=== PATIENT | female | born 1990 | race African-American/Black ===

== ENCOUNTER 2018-04-26 00:32 | Day surgery (SDC) | payer OTHER ==
[2018-04-26 00:53] VITALS: BP 115/75; TEMP 98.6; BMI 33.2
[2018-04-26] MEDS ORDERED: Ondansetron ODT 4 MG TAB PO PRN (01:21)
[2018-04-26 01:41] LABS: #Eosinphils 0.1 thou/uL (0.0-0.7); #Lymphocytes 1.1 thou/uL (1.20-3.40); #Monocytes 0.2 thou/uL (0.11-0.59); #Neutrophils 4.5 thou/uL (1.40-6.50); %Basophils 0.1 % (0.0-1.0); %Eosinophils 1.1 % (0.0-10.0); %Lymphocytes 19.3 % (21.0-51.0); %Monocytes 2.8 % (0.0-10.0); %Neutrophils 76.8 % (42.0-75.0); Hemoglobin 11.9 g/dL (12.0-16.0); Mean Corpuscular HGB CONC 31.9 g/dL (32.0-36.0); Mean Corpuscular Hemoglobin 26.1 pg (27.0-31.0); Mean Corpuscular Volume 81.8 fL (78.0-98.0); Mean Platelet Volume 9.2 fL (7.4-10.4); Platelet Count 190 thou/uL (130-400); RBC Distribution Width 12.9 % (11.5-14.5); Red Blood Cell (RBC) Count 4.54 mill/uL (4.20-5.40); White Blood Cell (WBC) Count 5.9 thou/uL (4.8-10.8)
[2018-04-26 02:03] LABS: ALT (SGPT) 12 U/L (8-55); AST (SGOT) 17 U/L (5-34); Albumin 3.3 g/dL (3.5-5.0); Alkaline Phosphatase 158 U/L (40-150); Anion Gap 15 mmol/L (10-20); BUN (Urea Nitrogen) 5 mg/dL (7.0-18.7); Bilirubin, Total 0.7 mg/dL (0.2-1.2); Calc. Creatinine Clearance 152 mL/min (70-130); Calcium 8.8 mg/dL (7.8-10.44); Carbon Dioxide 22 mmol/L (22-29); Chloride 106 mmol/L (98-107); Estimated GFR-MDRD Greater than 90; Globulin 2.8 g/dL (2.4-3.5); Glucose 74 mg/dL (70-105); Potassium 3.7 mmol/L (3.5-5.1); Protein, Total 6.1 g/dL (6.0-8.3); Sodium 139 mmol/L (136-145)
[2018-04-26 02:12] LABS: Bilirubin Small (Negative); Blood, Urine Negative (Negative); Clarity CLOUDY (Clear); Glucose, Urine (Dipstick) Negative (Negative); Leukocyte Small (Negative); Nitrite Negative (Negative); Protein, Urine (Dipstick) Trace mg/dL (Neg-Trace); Specific Gravity, Urine 1.022 (1.002-1.036)
[2018-04-26 02:13] LABS: Bacteria/HPF 1+ HPF (None Seen); Hyaline Casts/LPF 7-10 HYALINE CAST LPF (0-3 Hyaline); Pathc Cast-AUWi Flag 1.76 (0-2.49)
[2018-04-26 02:24] LABS: Transitional Epithelial 0-3 HPF (0-3)
[2018-04-26] MEDS ORDERED: Lactated Ringer's 1,000 ML IV SCH ×2 (02:30)
--- NOTE | 2018-04-26 06:00 | SS ---
DATE OF ADMISSION: 04/26/2018 DATE OF DISCHARGE: 04/26/2018 REGULAR PHYSICIAN: Kamran Villegas MD. EVALUATING PHYSICIAN: Huy Durand MD CHIEF COMPLAINT: Vomiting x3 at home. HISTORY OF PRESENT ILLNESS: Ms. Caceres is a 27-year-old black -0-0-2 with an estimated date of confinement of 05/06/2018, who presents complaining of 3 episodes of vomiting at home tonight. She has had associated nausea. She states that her significant other has also recently been ill with similar symptoms. She denies decreased movement, vaginal bleeding, or ruptured membranes. Her care has been with Dr. Villegas without complications. PAST OBSTETRICAL HISTORY: Includes two uncomplicated vaginal deliveries at term. PAST MEDICAL HISTORY: None. PAST SURGICAL HISTORY: None. CURRENT MEDICATIONS: vitamins. ALLERGIES: NO KNOWN ALLERGIES. SOCIAL HISTORY: Denies tobacco, alcohol, or drug use. FAMILY HISTORY: Unremarkable. REVIEW OF SYSTEMS: Positive for nausea and vomiting. Negative for fever, chills, ruptured membranes, or vaginal bleeding. PHYSICAL EXAMINATION: In triage, VITAL SIGNS: Her vital signs are stable and she is afebrile. GENERAL: She is in no acute distress. ABDOMEN: Soft and nontender. There is no guarding or rebound. heart rate tracing is stable. Irregular contractions are seen. Pelvic examination shows the cervix to be 2 cm dilated, which is unchanged from her exam in Dr. Villegas's office this week. LABORATORY DATA: CBC shows a white count of 5.9, and hemoglobin and hematocrit of 11.9 and 37.1, platelet count of 190,000. Chemistries show sodium of 139, potassium of 3.7, BUN of 5, creatinine of 0.70 with a total bilirubin of 0.7, AST of 17, and ALT of 12. Urinalysis shows specific gravity 1.022 with ketones present. The patient is given a L of lactated Ringer's in triage over hours' time and she is given Zofran 4 mg. She has had no further vomiting. ASSESSMENT: 1. 38-1/2 week intrauterine . 2. Nausea and vomiting, resolved with Zofran in triage. PLAN: The patient will be discharged to home. The patient was instructed to keep herself hydrated with Gatorade and clear liquids over the next 24 hours. She was given a prescription for Zofran 4 mg to be used 1 p.o. q.6 hours p.r.n. nausea, vomiting, #15. She voices understanding of her discharge instructions and was sent home in good condition. Job ID: [id number]
== END 2018-04-26 03:55 | disposition home or self-care (01) ==
LOC: L&D/OP 00:32
PROVIDERS: ATTEND Family Medicine
DX: O21.2 Late vomiting of pregnancy (principal); Z3A.38 38 weeks gestation of pregnancy
CPT/HCPCS: 36415; 80053; 81003; 81015; 85025; 96360; 99283; Q0162

== ENCOUNTER 2018-05-01 22:00 | Inpatient (IN) | payer OTHER ==
[2018-05-02 06:39] VITALS: BMI 33.2
[2018-05-02] MEDS ORDERED: Promethazine HCl 25 MG/ML VIAL IM PRN ×2 (06:40→10:55)
[2018-05-02] MEDS ORDERED: Lidocaine 1% (PF) 30 ML VIAL SC PRN (06:40)
[2018-05-02] MEDS ORDERED: Methylergonovine 0.2 MG/ML VIAL IM PRN (06:40)
[2018-05-02] MEDS ORDERED: Misoprostol 200 MCG TAB PR PRN (06:40)
[2018-05-02] MEDS ORDERED: Butorphanol Tartrate 1 MG/ML VIAL SLOW IVP PRN (06:40)
[2018-05-02] MEDS ORDERED: NS / Oxytocin 40 units/1000ml 1,000 ML IV PRN (06:40)
[2018-05-02] MEDS ORDERED: NS w/ Oxytocin 10 units 500 ML IV SCH ×2 (06:40)
[2018-05-02] MEDS ORDERED: Ondansetron PF 4 MG/2 ML Vial IVP PRN ×3 (06:40→18:07)
[2018-05-02] MEDS ORDERED: Diphenoxylate HCl/Atropine Tablet PO PRN (06:40)
[2018-05-02] MEDS ORDERED: HYDROcodone/Acetaminophen 5/325 mg Tablet PO PRN ×3 (06:40→18:07)
[2018-05-02] MEDS ORDERED: Carboprost 250 MCG/ML AMP IM PRN (06:40)
[2018-05-02] MEDS ORDERED: Ibuprofen 800 MG TAB PO PRN (06:40)
[2018-05-02] MEDS: Lactated Ringer's 1,000 ML IV SCH ×2 (07:16→10:50)
[2018-05-02 07:57] LABS: Hemoglobin 11.1 g/dL (12.0-16.0); Mean Corpuscular HGB CONC 32.5 g/dL (32.0-36.0); Mean Corpuscular Hemoglobin 26.3 pg (27.0-31.0); Mean Corpuscular Volume 80.9 fL (78.0-98.0); Mean Platelet Volume 10.1 fL (7.4-10.4); Platelet Count 170 thou/uL (130-400); RBC Distribution Width 12.9 % (11.5-14.5); Red Blood Cell (RBC) Count 4.23 mill/uL (4.20-5.40); White Blood Cell (WBC) Count 5.2 thou/uL (4.8-10.8)
[2018-05-02 08:31] LABS: HBSAg Index 0.25 S/CO (0-0.99); Hep B Surf Ag Non-Reactive S/CO (NonReactive)
[2018-05-02 08:32] LABS: Syphilis Antibody Nonreactive (Nonreactive); Syphilis Antibody Index 0.02 S/CO (<1.00 Non-Reactive)
[2018-05-02] MEDS ORDERED: Fentanyl 4 mcg/Bup 0.1% Cadd 100 ML ONE (10:16)
[2018-05-02] MEDS ORDERED: Fentanyl 100 MCG/2 ML VIAL ONE (10:35)
[2018-05-02] MEDS ORDERED: Lidocaine 1.5%/Epinephrine 1:200,000 5 ML AMPUL IJ ONE (10:35)
[2018-05-02] MEDS ORDERED: Eucerin (Mineral Oil/Petrolatum,White) 30 gm Jar TOP PRN (10:55)
[2018-05-02] MEDS ORDERED: Naloxone HCl 0.4 mg/ml Vial IVP PRN ×2 (10:55)
[2018-05-02] MEDS ORDERED: Acetaminophen 325 MG TAB PO PRN (10:55)
[2018-05-02] MEDS ORDERED: Lactated Ringer's 500 ML IV PRN (10:55)
[2018-05-02] MEDS ORDERED: diphenhydrAMINE 50 MG/ML VIAL IVP PRN (10:55)
[2018-05-02] MEDS ORDERED: ePHEDrine/0.9% NaCl/PF SYRINGE 50 mg/10 ml SLOW IVP PRN (10:55)
[2018-05-02] MEDS ORDERED: Communication Order-Pharmacy FS SCH (11:00)
[2018-05-02] MEDS ORDERED: Fentanyl 4 mcg/Bupivacaine 0.1% Cassette 100 ML EPIDURAL SCH (11:00)
[2018-05-02] MEDS ORDERED: Bisacodyl 10 MG SUPP PR PRN (18:07)
[2018-05-02] MEDS ORDERED: diphenhydrAMINE 25 MG CAP PO PRN (18:07)
[2018-05-02] MEDS ORDERED: NS / Oxytocin 40 units/1000ml 1,000 ML IV SCH (18:07)
[2018-05-02] MEDS ORDERED: Preparation H Ointment 28 GM TUBE PR PRN (18:07)
[2018-05-02] MEDS ORDERED: Lanolin Ointment 7 GM TUBE TOP PRN (18:07)
[2018-05-02] MEDS ORDERED: Benzocaine/Menthol 20-0.5% 60 ML CAN TOP PRN (18:07)
[2018-05-02] MEDS ORDERED: Milk Of Magnesia 30 ML UDCUP PO PRN (18:07)
[2018-05-02] MEDS ORDERED: Ferrous Sulfate 325 MG TAB PO SCH (18:15)
[2018-05-02] MEDS: Docusate Calcium (SURFAK) 240 MG CAP PO SCH (19:52)
[2018-05-03] MEDS: Ibuprofen 800 MG TAB PO SCH ×2 (00:58→14:27)
[2018-05-03 06:48] LABS: Hemoglobin 10.9 g/dL (12.0-16.0); Mean Corpuscular HGB CONC 32.4 g/dL (32.0-36.0); Mean Corpuscular Hemoglobin 26.9 pg (27.0-31.0); Mean Corpuscular Volume 83.1 fL (78.0-98.0); Mean Platelet Volume 9.5 fL (7.4-10.4); Platelet Count 147 thou/uL (130-400); RBC Distribution Width 13.1 % (11.5-14.5); Red Blood Cell (RBC) Count 4.04 mill/uL (4.20-5.40); White Blood Cell (WBC) Count 4.9 thou/uL (4.8-10.8)
[2018-05-03] MEDS ORDERED: Ferrous Sulfate 325 MG TAB PO SCH (08:00)
[2018-05-03] MEDS ORDERED: Prenatal Vitamin 1 TAB PO SCH (09:00)
[2018-05-03] MEDS: Docusate Calcium (SURFAK) 240 MG CAP PO SCH (09:26)
[2018-05-03 12:13] VITALS: BP 125/76; TEMP 98.1
[2018-05-03] MEDS ORDERED: Measles/Mumps/Rubella 10 MCG/0.5 ML VIAL SC ONE (18:00)
== END 2018-05-03 18:50 | disposition home or self-care (01) | DRG 807 ==
LOC: L&D 05-02 06:14 → 3SW 05-02 18:18
PROVIDERS: ADMIT Family Medicine; ATTEND Family Medicine
PROC: 10E0XZZ Delivery of Products of Conception, External Approach (ICD-10-PCS; principal; 2018-05-02)
PROC: 0UQMXZZ Repair Vulva, External Approach (ICD-10-PCS; 2018-05-02)
DX: O71.82 Other specified trauma to perineum and vulva (principal); Z37.0 Single live birth; Z3A.39 39 weeks gestation of pregnancy
CPT/HCPCS: 36415; 51701; 51702; 85027; 86780; 86850; 86900; 86901; 87340; 90707; J2001; J3010; J3490

== ENCOUNTER 2024-09-25 11:45 | Emergency (ER) | payer OTHER | END 2024-09-25 13:40 | disposition home or self-care (01) | LOC: ERS 11:45 | DX: M25.511 Pain in right shoulder (principal); M25.512 Pain in left shoulder; F17.290 Nicotine dependence, other tobacco product, uncomplicated | CPT/HCPCS: 93005; 99283 ==